=== PATIENT | female | born 1955 | race Caucasian/White ===

== ENCOUNTER 2017-08-10 08:31 | Inpatient (IN) | payer OTHER ==
[~2017-08-10] VITALS: Ht 160 cm; Wt 96.2 kg
[2017-08-10 09:28] LABS: PLATELET COUNT 476 x10^3mcL (130-400)
[2017-08-10 09:37] LABS: CALCIUM 9.2 mg/dL (8.5-10.1); CARBON DIOXIDE 24.9 mmol/L (21-32); CREATININE SERUM 1.1 mg/dL (0.6-1.0); POTASSIUM SERUM 3.9 mmol/L (3.5-5.1)
[2017-08-10 09:38] LABS: BAND NEUTROPHIL 3 % (0-10); BASOPHIL 0 % (0-2); SEGMENTED NEUTROPHILS 93 % (37-75)
[2017-08-10 09:40] LABS: PLATELET MORPHOLOGY PLATELETS INCREASED; rbc morphology (normal/abnorm) ABNORMAL (NORMAL)
[2017-08-10 09:41] LABS: ALBUMIN 3.2 g/dL (3.4-5.0); BILIRUBIN TOTAL 0.98 mg/dL (0.20-1.00); PHOSPHOROUS 2.6 mg/dL (2.5-4.9); TOTAL PROTEIN, SERUM 8.3 g/dL (6.4-8.2); URIC ACID 6.2 mg/dL (2.6-6.0)
[2017-08-10 14:23] LABS: T3 TOTAL 0.74 ng/mL
[2017-08-10 15:04] LABS: AMYLASE 26 U/L (25-115); LIPASE 125 IU/L (73-393)
[2017-08-10 15:11] LABS: FREE T4 1.2 ng/dL (0.76-1.46); FREE THYROXINE INDEX 2.5 ug/dL (1.4-4.5); T4(THYROXINE) 7.9 ug/dL (4.7-13.3)
[2017-08-10 15:25] VITALS: BP 115/72
[2017-08-10 18:00] VITALS: BP 105/69
[2017-08-10 21:38] VITALS: BP 112/65
[2017-08-11 05:15] VITALS: BP 115/58
[2017-08-11 06:55] LABS: RED CELL DISTRIBUTION WIDTH 14.2 % (11.5-14.5)
[2017-08-11 07:15] LABS: CALCIUM 9.1 mg/dL (8.5-10.1); CARBON DIOXIDE 24.5 mmol/L (21-32); CREATININE SERUM 1.1 mg/dL (0.6-1.0); MAGNESIUM 2.6 mg/dL (1.8-2.4); PHOSPHOROUS 4.4 mg/dL (2.5-4.9); POTASSIUM SERUM 4.7 mmol/L (3.5-5.1)
[2017-08-11 07:52] LABS: PLATELET COUNT 473 x10^3mcL (130-400)
[2017-08-11 09:58] VITALS: BP 116/61
[2017-08-11 10:40] LABS: BAND NEUTROPHIL 15 % (0-10); BASOPHIL 0 % (0-2); MONOCYTE 5 % (0-7); PLATELET MORPHOLOGY LARGE PLATELET SEEN; SEGMENTED NEUTROPHILS 73 % (37-75); rbc morphology (normal/abnorm) ABNORMAL (NORMAL); tear drop cell (dacryocyte) 1+
[2017-08-11 13:11] VITALS: BP 117/67
[2017-08-11 17:36] VITALS: BP 138/73
[2017-08-11 21:21] VITALS: BP 123/63
[2017-08-12 05:08] VITALS: BP 112/64
[2017-08-12 06:19] LABS: BASOPHIL % 0.3 % (0-2); RED CELL DISTRIBUTION WIDTH 14.2 % (11.5-14.5)
[2017-08-12 06:55] LABS: CALCIUM 8.3 mg/dL (8.5-10.1); CARBON DIOXIDE 27.1 mmol/L (21-32); CHLORIDE SERUM 106 mmol/L (98-107); CREATININE SERUM 0.9 mg/dL (0.6-1.0); GFR1 > 60 mL/min; GLUCOSE SERUM 96 mg/dL (74-106); MAGNESIUM 2.4 mg/dL (1.8-2.4); PHOSPHOROUS 3.5 mg/dL (2.5-4.9); POTASSIUM SERUM 4.5 mmol/L (3.5-5.1); SODIUM SERUM 138 mmol/L (136-145)
[2017-08-12 07:02] LABS: PLATELET COUNT 470 x10^3mcL (130-400)
[2017-08-12 09:30] VITALS: BP 128/79
[2017-08-12] MEDS ORDERED: LAC PO (13:30)
[2017-08-12] MEDS ORDERED: LEVAQUIN750 MG PO (13:43)
[2017-08-12 13:48] VITALS: Ht 160 cm; Wt 96.2 kg
[2017-08-12 14:17] VITALS: BP 128/79
== END 2017-08-12 18:20 | disposition home or self-care (01) | DRG 853 ==
LOC: ED 08:31 → DU 11:01 → MU 11:01 → EDBEDREQ 11:21 → EDBEDREQTM 11:23 → DU 11:55 → MU 08-11 08:51
PROVIDERS: Emergency Medicine; Family Medicine; Surgery
PROC: 0D9P00Z Drainage of Rectum with Drainage Device, Open Approach (ICD-10-PCS; principal; 2017-08-10 13:30)
DX: A41.9 Sepsis, unspecified organism (principal); N17.0 Acute kidney failure with tubular necrosis; E87.1 Hypo-osmolality and hyponatremia; E44.0 Moderate protein-calorie malnutrition; Z68.41 Body mass index [BMI] 40.0-44.9, adult; K61.1 Rectal abscess; R65.20 Severe sepsis without septic shock; E83.41 Hypermagnesemia; E11.65 Type 2 diabetes mellitus with hyperglycemia; E11.51 Type 2 diabetes mellitus with diabetic peripheral angiopathy without gangrene; D47.3 Essential (hemorrhagic) thrombocythemia; E78.5 Hyperlipidemia, unspecified; D64.9 Anemia, unspecified; F17.210 Nicotine dependence, cigarettes, uncomplicated; E66.01 Morbid (severe) obesity due to excess calories; Z88.5 Allergy status to narcotic agent; Z90.49 Acquired absence of other specified parts of digestive tract; Z90.89 Acquired absence of other organs; Z83.3 Family history of diabetes mellitus; Z82.49 Family history of ischemic heart disease and other diseases of the circulatory system; Z72.89 Other problems related to lifestyle; Z71.6 Tobacco abuse counseling
CPT/HCPCS: 82962; 83880; 84439; 94150; J0171; J1200; J1644; J2001; J2175; J2250; J2405; J2543; J2930; J3010; J7030; Q0092; Q0162; Q9967

== ENCOUNTER 2017-08-19 11:53 | Emergency (ER) | payer OTHER ==
[~2017-08-19] VITALS: Ht 160 cm; Wt 99.8 kg
[~2017-08-19 11:53] MED LIST: LAC PO; LEVAQUIN750 MG PO
[2017-08-19 12:08] VITALS: Ht 160 cm; Wt 99.8 kg
[2017-08-19 14:49] VITALS: BP 147/98
== END 2017-08-19 14:49 | disposition home or self-care (01) ==
LOC: ED 11:53
DX: Z48.01 Encounter for change or removal of surgical wound dressing (principal); Z88.5 Allergy status to narcotic agent